=== PATIENT | male | born 1950 | race Two or more races ===

== ENCOUNTER 2023-08-02 17:29 | Inpatient (IN) | payer BC, OTHER ==
[~2023-08-02] VITALS: Ht 170.2 cm; Wt 67.2 kg
[2023-08-02 18:03] VITALS: PULSE 81; RESP 16; O2SAT 93
[2023-08-02] MEDS: SODIUM CHLORIDE 0.9% 1,000 ML IVB ONE (18:56)
[2023-08-02 19:30] VITALS: RESP 20; O2SAT 95
[2023-08-02 19:47] LABS: Basophils # (auto) 0 10 ^3/uL (0-0.2); Basophils % (auto) 0.2 % (0.0-2.0); Eosinophils # (auto) 0 10 ^3/uL (0-0.8); Eosinophils % (auto) 0.4 % (0.0-7.0); Hemoglobin 14.8 g/dL (13.5-17.5); Lymphocytes # (auto) 1.8 10 ^3/uL (0.4-5.4); Lymphocytes % (auto) 20.4 % (10.0-50.0); Mean Corpuscular Hgb Conc. 33.5 g/dL (32.0-36.0); Mean Corpuscular Volume 101.5 fL (80.0-100.0); Monocytes # (auto) 1.3 10 ^3/uL (0-1.3); Monocytes % (auto) 14.1 % (0.0-12.0); Neutrophils # (auto) 5.9 10 ^3/uL (1.6-8.6); Neutrophils % (auto) 64.9 % (37.0-80.0); Nucleated Red Blood Cells % 0.2 %; Red Blood Cells 4.34 10^6/uL (4.5-5.90)
[2023-08-02 20:02] LABS: Alanine Aminotransferase 117 U/L (7-40); Albumin 3.7 g/dL (3.2-4.8); Alkaline Phosphatase 63 U/L (46-116); Anion Gap 8 (5-15); Aspartate Aminotransferase 77 U/L (13-40); BUN/Creatinine Ratio 16.9 (10.0-20.0); Blood Alcohol 3.2 mg/dL (<10); Blood Urea Nitrogen 14 mg/dL (9-23); Calcium 9.1 mg/dL (8.5-10.1); Carbon Dioxide 24 mmol/L (20-30); Chloride 108 mmol/L (98-107); Glucose 84 mg/dL (74-106); Potassium 3.1 mmol/L (3.5-5.1); Sodium 140 mmol/L (136-145); Total Protein 6.9 g/dL (5.7-8.2)
[2023-08-02 21:17] LABS: Amphetamine Screen, Urine Neg (NEGATIVE); Barbiturate Scree,Urine Neg (NEGATIVE); Benzodiazephine Screen, Urine Neg (NEGATIVE); Cannabinoid Screen, Urine Neg (NEGATIVE); Cocaine Screen, Urine Neg (NEGATIVE); Opiate Scree,Urine Neg (NEGATIVE); Phencyclidine Screen, Urine Neg (NEGATIVE)
[2023-08-02 21:31] LABS: Urine Bacteria NONE SEEN /hpf (None Seen); Urine Blood Negative /uL (Negative); Urine Clarity Clear (Clear); Urine Color Yellow (Yellow); Urine Mucus FEW (None Seen); Urine Protein, UAD Negative (Negative); Urine Specific Gravity 1.012 (1.001-1.035); Urine Urobilinogen Normal (Negative); Urine WBC <1 /hpf (0 - 3); Urine pH 6.5 (5.0-8.0)
[2023-08-02] MEDS ORDERED: DOCUSATE SOD 100 MG CAP PO PRN (22:00)
[2023-08-02] MEDS ORDERED: HYDROcodone-ACET 5/325MG TAB PO PRN (22:00)
[2023-08-02] MEDS ORDERED: ONDANSETRON HCL 4 MG/2 ML VIAL IV PRN (22:00)
[2023-08-02] MEDS: POTASSIUM CHL 20 Meq TABLET PO ONE (22:07)
[2023-08-02] MEDS: SODIUM CHLOR 0.9% PF (SALINE LOCK) 10ML VIAL/SYR IV SCH (22:12)
[2023-08-02] MEDS ORDERED: NITROGLYCERIN 0.4 MG SL TAB SL PRN (22:15)
[2023-08-02] MEDS ORDERED: MORPHINE SULFATE INJ 2 MG/ml SYRG IV PRN (22:15)
[2023-08-03] MEDS ORDERED: MORPHINE SULFATE INJ 2 MG/ml SYRG IV PRN (01:15)
[2023-08-03] MEDS ORDERED: NITROGLYCERIN 0.4 MG SL TAB SL PRN (01:15)
[2023-08-03 07:37] LABS: Basophils # (auto) 0 10 ^3/uL (0-0.2); Hemoglobin 13.9 g/dL (13.5-17.5); Monocytes # (auto) 0.8 10 ^3/uL (0-1.3); Nucleated Red Blood Cells % 0.1 %
[2023-08-03 07:39] LABS: Basophils % (auto) 0.2 % (0.0-2.0); Eosinophils # (auto) 0 10 ^3/uL (0-0.8); Eosinophils % (auto) 0.4 % (0.0-7.0); Lymphocytes # (auto) 2.9 10 ^3/uL (0.4-5.4); Lymphocytes % (auto) 30.8 % (10.0-50.0); Mean Corpuscular Hemoglobin 33.9 pg (28.0-32.0); Mean Corpuscular Hgb Conc. 33.9 g/dL (32.0-36.0); Mean Corpuscular Volume 100.1 fL (80.0-100.0); Monocytes % (auto) 8.6 % (0.0-12.0); Neutrophils # (auto) 5.7 10 ^3/uL (1.6-8.6); Red Cell Distribution Width 14.6 % (11.8-14.3); White Blood Cell 9.4 10^3/uL (4.4-10.8)
[2023-08-03 07:53] LABS: Alanine Aminotransferase 104 U/L (7-40); Albumin 3.5 g/dL (3.2-4.8); Alkaline Phosphatase 59 U/L (46-116); Anion Gap 8 (5-15); Aspartate Aminotransferase 66 U/L (13-40); BUN/Creatinine Ratio 19.7 (10.0-20.0); Bilirubin, Total 0.8 mg/dL (0.2-1.0); Blood Urea Nitrogen 14 mg/dL (9-23); Calcium 8.9 mg/dL (8.5-10.1); Carbon Dioxide 24 mmol/L (20-30); Chloride 109 mmol/L (98-107); Glucose 89 mg/dL (74-106); Potassium 3.9 mmol/L (3.5-5.1); Sodium 141 mmol/L (136-145)
[2023-08-03 07:54] LABS: Total Protein 6.6 g/dL (5.7-8.2)
[2023-08-03 12:00] VITALS: RESP 18; O2SAT 95
[2023-08-03 13:09] VITALS: BP 130/90; PULSE 75; RESP 19; TEMP 97; O2SAT 99
[2023-08-03] MEDS ORDERED: BACL10TA PO (16:22)
[2023-08-03] MEDS ORDERED: DICL50TA4 PO (16:22)
[2023-08-03 20:00] VITALS: PULSE 85; PULSE 88
[2023-08-03 21:31] VITALS: BP 104/66; PULSE 67; RESP 18; TEMP 98.7; O2SAT 91
[2023-08-04] VITALS (7 sets, daily range): BP systolic 96–135; BP diastolic 57–89; PULSE 76–96; RESP 14–17; TEMP 98–99.9; O2SAT 95–98
[2023-08-04] MEDS: ACETAMINOPHEN 325 MG TAB PO PRN (09:09)
[2023-08-04 10:38] LABS: Basophils # (auto) 0 10 ^3/uL (0-0.2); Basophils % (auto) 0.3 % (0.0-2.0); Eosinophils # (auto) 0 10 ^3/uL (0-0.8); Eosinophils % (auto) 0.6 % (0.0-7.0); Hematocrit 38.6 % (41.0-53.0); Lymphocytes # (auto) 2.3 10 ^3/uL (0.4-5.4); Lymphocytes % (auto) 36.1 % (10.0-50.0); Mean Corpuscular Hemoglobin 33.7 pg (28.0-32.0); Mean Corpuscular Hgb Conc. 33.7 g/dL (32.0-36.0); Mean Corpuscular Volume 99.8 fL (80.0-100.0); Monocytes # (auto) 0.8 10 ^3/uL (0-1.3); Monocytes % (auto) 12.3 % (0.0-12.0); Neutrophils # (auto) 3.2 10 ^3/uL (1.6-8.6); Neutrophils % (auto) 50.7 % (37.0-80.0); Nucleated Red Blood Cells % 0.1 %; Red Blood Cells 3.87 10^6/uL (4.5-5.90); Red Cell Distribution Width 14.9 % (11.8-14.3); White Blood Cell 6.3 10^3/uL (4.4-10.8)
[2023-08-04 11:11] LABS: Alanine Aminotransferase 95 U/L (7-40); Albumin 3.3 g/dL (3.2-4.8); Alkaline Phosphatase 55 U/L (46-116); Anion Gap 6 (5-15); Aspartate Aminotransferase 53 U/L (13-40); Bilirubin, Total 0.7 mg/dL (0.2-1.0); Blood Urea Nitrogen 16 mg/dL (9-23); Calcium 8.4 mg/dL (8.7-10.4); Carbon Dioxide 22 mmol/L (20-30); Chloride 108 mmol/L (98-107); Glucose 105 mg/dL (74-106); Magnesium 1.8 mg/dL (1.6-2.6); Potassium 3.8 mmol/L (3.5-5.1); Sodium 136 mmol/L (136-145)
[2023-08-04 15:45] LABS: Erythrocyte Sedimentation Rate 23 mm/hr (0-20)
[2023-08-04] MEDS: NICOTINE 14 MG/24HR TOPICAL PATCH TD ONE (17:35)
[2023-08-04] MEDS: SODIUM CHLORIDE 0.9% 1,000 ML IV SCH (17:45)
[2023-08-04] MEDS: LACTULOSE 20Gm/30ML SOLN PO SCH (21:42)
[2023-08-04] MEDS: SENNA 8.6 MG TAB PO SCH (21:43)
[2023-08-05 05:00] VITALS: BP_SYST 115; BP_SYST 135; BP_DIAS 85; PULSE 89; RESP 17; TEMP 98.7; O2SAT 98
[2023-08-05 08:00] VITALS: PULSE 80; PULSE 82; RESP 20
[2023-08-05 08:36] VITALS: BP 124/87; PULSE 67; RESP 17; TEMP 98.6; O2SAT 95
[2023-08-05] MEDS: NICOTINE 14 MG/24HR TOPICAL PATCH TD SCH (09:35)
[2023-08-05 10:18] LABS: Folate (Folic Acid) 17.3 ng/mL (>5.38)
[2023-08-05 10:20] LABS: Free T4 (Free Thyroxine) 1.05 ng/dL (0.89-1.76)
[2023-08-05 12:47] VITALS: BP 133/82; PULSE 80; TEMP 98.5; O2SAT 96
[2023-08-05] MEDS: MAGNESIUM SULFATE 1GM/100ML 100 ML IV SCH (19:50)
[2023-08-05 20:00] VITALS: PULSE 89; RESP 16
[2023-08-05 20:57] VITALS: BP 127/89; PULSE 87; RESP 20; TEMP 98.5; O2SAT 97
[2023-08-06 03:44] VITALS: BP 128/86; PULSE 87; RESP 18; TEMP 98.3; O2SAT 97
[2023-08-06 08:00] VITALS: PULSE 85
[2023-08-06 08:06] LABS: RPR Non Reactive (Non Reactive)
[2023-08-06 09:00] VITALS: BP 114/67; PULSE 88; RESP 17; TEMP 98.5; O2SAT 95
[2023-08-06 13:00] VITALS: BP 130/82; PULSE 84; RESP 18; O2SAT 97
== END 2023-08-06 16:26 | DRG 640 ==
LOC: ER 17:29 → EDBD 17:29 → TELE 22:08 → UNDOADMIN 22:08 → TELE 08-03 01:04 → TELE-EAST 08-03 12:05
PROVIDERS: ADMIT Nurse Practitioner Family; ATTEND Hospitalist
DX: E87.6 Hypokalemia (principal); G93.41 Metabolic encephalopathy; R74.01 Elevation of levels of liver transaminase levels; R56.9 Unspecified convulsions; R33.9 Retention of urine, unspecified; M41.9 Scoliosis, unspecified; M54.9 Dorsalgia, unspecified; F17.210 Nicotine dependence, cigarettes, uncomplicated; Z88.0 Allergy status to penicillin; Z79.899 Other long term (current) drug therapy
CPT/HCPCS: 36415; 70450; 72125; 72128; 72131; 73560; 74018; 80053; 80307; 80320; 81001; 82306; 82607; 82746; 83735; 83880; 84439; 84443; 84484; 85025; 85652; 86141; 86592; 87086; 93005; 93306; 96360; 97110; 97163; 97530; G0378

== ENCOUNTER 2023-08-20 13:57 | Inpatient (IN) | payer BC ==
[~2023-08-20] VITALS: Ht 170.2 cm; Wt 64.8 kg
[~2023-08-20 13:57] MED LIST: BACL10TA PO; DICL50TA4 PO
[2023-08-20 15:37] LABS: Basophils # (auto) 0 10 ^3/uL (0-0.2); Basophils % (auto) 0.3 % (0.0-2.0); Eosinophils # (auto) 0 10 ^3/uL (0-0.8); Eosinophils % (auto) 0.1 % (0.0-7.0); Hematocrit 40.4 % (41.0-53.0); Hemoglobin 13.7 g/dL (13.5-17.5); Lymphocytes # (auto) 0.5 10 ^3/uL (0.4-5.4); Lymphocytes % (auto) 6.1 % (10.0-50.0); Mean Corpuscular Hemoglobin 33.2 pg (28.0-32.0); Mean Corpuscular Hgb Conc. 33.8 g/dL (32.0-36.0); Mean Corpuscular Volume 98.4 fL (80.0-100.0); Monocytes % (auto) 13.8 % (0.0-12.0); Neutrophils # (auto) 5.9 10 ^3/uL (1.6-8.6); Neutrophils % (auto) 79.7 % (37.0-80.0); Nucleated Red Blood Cells % 0.1 %; Red Blood Cells 4.11 10^6/uL (4.5-5.90); Red Cell Distribution Width 14.2 % (11.8-14.3); White Blood Cell 7.4 10^3/uL (4.4-10.8)
[2023-08-20 15:51] LABS: Alanine Aminotransferase 39 U/L (7-40); Albumin 3.6 g/dL (3.2-4.8); Alkaline Phosphatase 78 U/L (46-116); Anion Gap 6 (5-15); Aspartate Aminotransferase 37 U/L (13-40); BUN/Creatinine Ratio 12.9 (10.0-20.0); Bilirubin, Total 0.4 mg/dL (0.2-1.0); Blood Urea Nitrogen 8 mg/dL (9-23); Calcium 8.7 mg/dL (8.5-10.1); Carbon Dioxide 27 mmol/L (20-30); Chloride 102 mmol/L (98-107); Glucose 95 mg/dL (74-106); Potassium 4.1 mmol/L (3.5-5.1); Sodium 135 mmol/L (136-145); Total Protein 6.8 g/dL (5.7-8.2)
[2023-08-20] MEDS ORDERED: VANCOMYCIN PER PHARMACY 0 MG IV SCH (16:00)
[2023-08-20 16:43] LABS: CRP High Sensitivity 1.58 mg/dL (<1.0)
[2023-08-20 16:54] LABS: Magnesium 1.8 mg/dL (1.6-2.6)
[2023-08-20] MEDS ORDERED: VANCOMYCIN 1GM/200ML 200 ML IV ONE (18:00)
[2023-08-20 19:11] LABS: Rapid Influenza A Negative (Negative); Rapid Influenza B Negative (Negative)
[2023-08-20 19:13] LABS: COVID19 ANTIGEN SOFIA FIA POSITIVE (NEGATIVE)
[2023-08-20] MEDS ORDERED: DexAMETHasone INJECTION 10 MG in D5W 5% 50 ML IV ONE (19:45)
[2023-08-20] MEDS ORDERED: hydrALAZINE HCL 10 MG TAB PO PRN (20:45)
[2023-08-21] VITALS (8 sets, daily range): BP systolic 125–127; BP diastolic 81–86; PULSE 68–96; RESP 16–21; TEMP 97.6–98.6; O2SAT 93–98
[2023-08-21] MEDS: FAMOTIDINE 20 MG TAB PO SCH (01:51)
[2023-08-21] MEDS: VANCOMYCIN 1GM/200ML 200 ML IV SCH ×2 (01:51→16:31)
[2023-08-21] MEDS: DexAMETHasone SOD PHOS 10MG/1ML VIAL INJ IV ONE (01:51)
[2023-08-21] MEDS: ENOXAPARIN SOD 100 MG/1 ML SYRINGE SC ONE (01:51)
[2023-08-21] MEDS: SODIUM CHLORIDE 0.9% 1,000 ML IV ONE (01:52)
[2023-08-21 02:53] LABS: Urine Bacteria FEW /hpf (None Seen); Urine Blood 2+ /uL (Negative); Urine Clarity HAZY (Clear); Urine Color Yellow (Yellow); Urine Mucus FEW (None Seen); Urine Protein, UAD TRACE (Negative); Urine Specific Gravity 1.029 (1.001-1.035); Urine WBC 7 /hpf (0 - 3); Urine pH 6.5 (5.0-8.0)
[2023-08-21] MEDS: ACETAMINOPHEN 325 MG TAB PO PRN (03:56)
[2023-08-21 05:54] LABS: Basophils # (auto) 0 10 ^3/uL (0-0.2); Basophils % (auto) 0.4 % (0.0-2.0); Eosinophils # (auto) 0 10 ^3/uL (0-0.8); Hematocrit 37.1 % (41.0-53.0); Hemoglobin 12.7 g/dL (13.5-17.5); Lymphocytes # (auto) 0.7 10 ^3/uL (0.4-5.4); Mean Corpuscular Hemoglobin 33.9 pg (28.0-32.0); Mean Corpuscular Hgb Conc. 34.2 g/dL (32.0-36.0); Monocytes # (auto) 0.5 10 ^3/uL (0-1.3); Neutrophils # (auto) 3.9 10 ^3/uL (1.6-8.6); Neutrophils % (auto) 76.6 % (37.0-80.0); Nucleated Red Blood Cells % 0.1 %; Red Blood Cells 3.75 10^6/uL (4.5-5.90); White Blood Cell 5.1 10^3/uL (4.4-10.8)
[2023-08-21 06:04] LABS: Calcium 8.7 mg/dL (8.7-10.4); Chloride 105 mmol/L (98-107); Potassium 4.1 mmol/L (3.5-5.1); Sodium 137 mmol/L (136-145)
[2023-08-21 06:05] LABS: Anion Gap 9 (5-15); Carbon Dioxide 23 mmol/L (20-30)
[2023-08-21 06:10] LABS: BUN/Creatinine Ratio 18.8 (10.0-20.0); Blood Urea Nitrogen 13 mg/dL (9-23); Glucose 105 mg/dL (74-106)
[2023-08-21] MEDS: ASCORBIC ACID 500 MG TAB PO SCH (10:16)
[2023-08-21] MEDS: ZINC SULFATE 220mg CAP or TAB PO SCH (10:16)
[2023-08-21] MEDS: ENOXAPARIN SOD 40 MG/0.4 ML SYRINGE SC SCH (10:16)
[2023-08-21] MEDS: HYDROcodone-ACET 5/325MG TAB PO PRN (12:45)
[2023-08-21] MEDS: BACLOFEN 10 MG TAB PO SCH (12:45)
[2023-08-21] MEDS: HYDROcodone-ACET 10/325MG TAB PO PRN (16:31)
[2023-08-21] MEDS: APIXABAN 2.5 MG TAB PO SCH (21:01)
[2023-08-22] VITALS (10 sets, daily range): BP systolic 129–146; BP diastolic 76–92; PULSE 62–95; RESP 18–20; TEMP 97.1–98.3; O2SAT 94–98
[2023-08-22] MEDS: VANCOMYCIN 1GM/200ML 200 ML IV SCH (16:40)
[2023-08-22] MEDS ORDERED: APIX2.5T PO (16:43)
[2023-08-23] VITALS (8 sets, daily range): BP systolic 139–142; BP diastolic 85–98; PULSE 57–97; RESP 14–20; TEMP 96.8–98.3; O2SAT 69–100
== END 2023-08-23 17:50 | disposition hospice, home (50) | DRG 177 ==
LOC: EDBD 13:57 → ER 13:57 → TELE 20:45 → TELE-WESTW 08-21 08:53
PROVIDERS: ADMIT Nurse Practitioner Family; ATTEND Internal Medicine
DX: U07.1 COVID-19 (principal); G82.50 Quadriplegia, unspecified; J12.82 Pneumonia due to coronavirus disease 2019; E44.0 Moderate protein-calorie malnutrition; I82.621 Acute embolism and thrombosis of deep veins of right upper extremity; G95.9 Disease of spinal cord, unspecified; F17.210 Nicotine dependence, cigarettes, uncomplicated; Z88.0 Allergy status to penicillin; Z68.22 Body mass index [BMI] 22.0-22.9, adult
CPT/HCPCS: 36415; 71045; 80048; 80053; 80202; 81001; 82565; 83605; 83735; 84484; 85025; 86141; 87040; 87077; 87081; 87186; 87426; 87804; 93970; G0378; J1100